=== PATIENT | male | born 1980 | race African-American/Black ===

== ENCOUNTER 2019-06-02 06:01 | Emergency (ER) | payer OTHER ==
[~2019-06-02] VITALS: Ht 182.9 cm; Wt 73.0 kg
[2019-06-02 07:54] LABS: BASOPHILS % 0.4 % (0.0-2.0); EOSINOPHILS % 0.6 % (0.0-5.0); HEMATOCRIT. 44.3 % (42.0-52.0); HEMOGLOBIN. 14.9 g/dL (14.0-18.0); LYMPHOCYTES % 22.5 % (20.0-50.0); MEAN CORPUSCULAR HEMOGLOBIN 32.5 pg (28.0-32.0); MEAN CORPUSCULAR VOLUME 96.6 fL (80.0-94.0); MEAN PLATELET VOLUME 8.1 fl (7.4-10.4); MONOCYTES % 10.2 % (2.0-8.0); NEUTROPHILS % 66.3 % (40.0-76.0); PLATELET 281 x1000/uL (130-400); RED BLOOD CELL COUNT 4.59 mill/uL (4.7-6.1); RED CELL DISTRIBUTION WIDTH 12.7 % (11.6-14.6)
[2019-06-02 07:59] LABS: CHLORIDE 104 mEq/L (98-107)
[2019-06-02] MEDS: SODIUM CHLORIDE 0.9% 1,000 ML IV ONE (08:21)
[2019-06-02 10:29] VITALS: BP 124/80
== END 2019-06-02 10:34 | disposition home or self-care (01) ==
LOC: ER 06:01
DX: R10.30 Lower abdominal pain, unspecified (principal); R19.7 Diarrhea, unspecified; F12.10 Cannabis abuse, uncomplicated
CPT/HCPCS: 36415; 80053; 83690; 85025; 96360; 96361; 99283; J7030

== ENCOUNTER 2020-01-10 18:20 | Emergency (ER) | payer OTHER ==
[~2020-01-10] VITALS: Ht 180.3 cm; Wt 73.0 kg
[2020-01-10 21:25] LABS: BASOPHILS % 0.3 % (0.0-2.0); EOSINOPHILS % 0.2 % (0.0-5.0); HEMATOCRIT. 42.4 % (42.0-52.0); HEMOGLOBIN. 14.8 g/dL (14.0-18.0); LYMPHOCYTES % 14.9 % (20.0-50.0); MEAN CORPUSCULAR HEMOGLOBIN 34.4 pg (28.0-32.0); MEAN CORPUSCULAR VOLUME 98.9 fL (80.0-94.0); MEAN PLATELET VOLUME 8.6 fl (7.4-10.4); MONOCYTES % 8.3 % (2.0-8.0); NEUTROPHILS % 76.3 % (40.0-76.0); PLATELET 235 x1000/uL (130-400); RED BLOOD CELL COUNT 4.29 mill/uL (4.7-6.1); RED CELL DISTRIBUTION WIDTH 12.9 % (11.6-14.6)
[2020-01-10 21:31] LABS: CHLORIDE 110 mEq/L (98-107)
[2020-01-10 21:35] LABS: ETHANOL BLOOD < 10 mg/dL
[2020-01-10] MEDS ORDERED: ONDANSETRON HCL 4MG/2ML INJ IV ONE ×2 (23:00→23:45)
[2020-01-10 23:52] VITALS: BP 118/50
== END 2020-01-11 00:09 | disposition home or self-care (01) ==
LOC: ER 18:20
DX: T40.4X1A Poisoning by other synthetic narcotics, accidental (unintentional), initial encounter (principal); F12.10 Cannabis abuse, uncomplicated; Y92.018 Other place in single-family (private) house as the place of occurrence of the external cause
CPT/HCPCS: 36415; 80053; 80307; 80320; 85025; 96374; 96376; 99284; J2405; G0480

== ENCOUNTER 2021-12-16 22:24 | Emergency (ER) | payer BC, OTHER ==
[~2021-12-16] VITALS: Ht 182.9 cm; Wt 80.0 kg
[2021-12-16] MEDS ORDERED: TETANUS, DIPHTHERIA, PERTUSSIS VAC/PF 0.5ML (>10YR OLD) IM ONE (22:30)
[2021-12-16] MEDS ORDERED: MORPHINE SULFATE 4 MG/ML CPJ (NOT FOR IM USE) IV ONE ×2 (22:30→23:45)
[2021-12-16] MEDS ORDERED: CEFAZOLIN 1000MG PREMIX 50 ML IV NR (23:00)
[2021-12-17] MEDS ORDERED: OXYC-100 MT ×2 (03:35→06:25)
[2021-12-17] MEDS ORDERED: IBUP-2029 MT (03:35)
[2021-12-17] MEDS ORDERED: AMOX-424 MT (03:35)
[2021-12-17] MEDS ORDERED: HYDROCODONE/ACETAMINOPHEN 5/325MG TABLET PO ONE (04:45)
[2021-12-17 04:57] VITALS: BP 126/68
== END 2021-12-17 05:12 | disposition home or self-care (01) ==
LOC: ER 22:24
DX: S62.122A Displaced fracture of lunate [semilunar], left wrist, initial encounter for closed fracture (principal); S61.532A Puncture wound without foreign body of left wrist, initial encounter; W34.09XA Accidental discharge from other specified firearms, initial encounter; Y93.89 Activity, other specified; Y92.89 Other specified places as the place of occurrence of the external cause; Y99.8 Other external cause status; F14.10 Cocaine abuse, uncomplicated; Z79.899 Other long term (current) drug therapy
CPT/HCPCS: 73110; 73130; 90471; 90715; 96365; 96375; 96376; 99284; J0690; J2270